=== PATIENT | female | born 1960 | race African-American/Black ===

== ENCOUNTER → 2020-09-29 08:41 | Outpatient (BNVA) | payer MEDICARE, SELFPAY | PROVIDERS: Visit Provider Nurse Practitioner Gerontology | DX: Z13.89 Encounter for screening for other disorder (principal) | CPT/HCPCS: Q3014 ==

== ENCOUNTER → 2021-09-29 10:09 | Outpatient (BNVA) | payer MEDICARE, SELFPAY | PROVIDERS: PCP Internal Medicine; Visit Provider Nurse Practitioner Gerontology | DX: Z13.89 Encounter for screening for other disorder (principal) | CPT/HCPCS: Q3014 ==

== ENCOUNTER 2023-11-15 12:41 | Outpatient (AMB) | payer OTHER, SELFPAY ==
--- NOTE | 2023-11-15 12:44 | A.OFFPC_ITS ---
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 Patient states she had thyroid surgery in 2017. Patient reports she does not have any concerns at this time. Patient reports it has been a long time since she was seen by a provider. Patient states she has some medical records with her today. Dr. Mishra was patient's PCP previously and he has . Manuscripts Curator Required: No Accompanied by: self Allergies No Known Allergies [No Known Allergies*] Allergy (Verified 11/15/23 12:53) Medication List - Last Reconciled 11/15/23 by Kirsty Peralta, SOIL EXPERT- buspirone 10 mg PO TID cetirizine 10 mg PO DAILY PRN cholecalciferol (vitamin D3) 25 mcg PO DAILY fluoxetine 40 mg PO DAILY hydroxyzine pamoate 25 mg PO BID ibuprofen 200 mg PO Q6H PRN levothyroxine 100 mcg PO QAM lorazepam 1 mg PO DAILY PRN Tobacco use date assessed: 11/15/23 Fall risk assessment: No Falls in past year Last assessed Fall Risk: 11/15/23 Dental Screening Dental Screen Date: 11/15/23 Did you have a dental visit in the last 12 months?: No Did you have a dental problem in the last 6 months where you did not have access to dental care?: No Was dental information given to patient?: Patient has dentist HPI HPI Comments History of Present Illness Details 63-year-old female with hyperlipidemia, GERD, MDD, postsurgical hypothyroidism (Graves disease 2015), current everyday smoker, CKD 3a, bipolar, osteoarthritis, Dental: bottom partials, top bumper Status post hernia repair, appendectomy, thyroidectomy (2016), Specialists Endocrinology - no longer ff'd Psychiatry Will Leigh Counselor Yves Coats - years since last visit Health maintenance Colonoscopy FOBT 09/2023 negative; has never had a colon. Mom + polyps Mammogram ordered Pap smear unsure of last pap. Would like to update. Menopause age age 44 DEXA has never had one Vaccines: due for flu shot Last set of labs 10/15/2019 Here today to est care Needs orders on all of her health maintenance diagnostics and labs. Reports she has not been seen by health care in several years due to severe anxiety. She is ready to get back on top of her health today. COUNTS INCLUDE 234 BEDS AT THE [facility] Medical History Vertigo Postsurgical hypothyroidism Surgical History Hx of hernia repair Hx of appendectomy Hx of section Hx of thyroidectomy Family History Mother Diabetes Father Lung cancer Social History (Updated 11/15/23 @ 13:01 by Tereza Escobar CMA) Household Members: Spouse Housing: House Alcohol intake: current Alcohol intake frequency: other Patient Tobacco Use Status: Current everyday Tobacco user Tobacco use type: Cigarette Cigarette Packs Per Day: 0.5 Years Smoked: 50 e-Cigarette/Vaping Use: Never Used Second Hand Smoke Exposure: Yes Substance Use Type: Marijuana service: No Current occupational status: unemployed Current occupational exposures/hazards: No Sexual orientation: Unable to collect Gender identity: Unable to collect Cognitive needs: No Hearing needs: No Vision needs: Yes (wears glasses) Questionnaire PHQ-9 Over the last 2 weeks, how often have you been bothered by any of the following problems? 1. Little interest or pleasure in doing things: more than half the days 2. Feeling down, depressed, or hopeless: nearly every day 3. Trouble falling or staying asleep, or sleeping too much: more than half the days 4. Feeling tired or having little energy: more than half the days 5. Poor appetite or overeating: more than half the days 6. Feeling bad about yourself - or that you are a failure or have let yourself or your family down: several days 7. Trouble concentrating on things, such as reading the newspaper or watching television: not at all 8. Moving or speaking so slowly that other people could have noticed. Or the opposite - being so fidgety or restless that you have been moving around a lot more than usual: not at all 9. Thoughts that you would be better off or of hurting yourself in some way: not at all Total score: 12 Depression Screening Interpretation: Positive Depression Screening Follow-up: Existing condition and In treatment Depression Screening Done: Yes 63023 - PHQ-9 Billing: Yes Source: Developed by Drs. Agusto Delgado, Klarissa Banegas, Satinder Douglas and colleagues, with an educational kaitlin from [employer]. Thrive Questionnaire Date Thrive assessed: 11/15/23 I am a: Patient What is your living situation today?: I have a steady place to live Within the past 12 months, did the food you bought not last and you didn't have the money to get more?: Sometimes True Within the past 12 months, did you worry whether your food would run out before you got money to buy more?: Sometimes True Do you have trouble paying for medicines?: No Do you have trouble getting transportation to medical appointments?: No Do you have trouble paying your heating and electricity bill?: Yes Do you have trouble taking care of your child, family member or friend?: No Do you have trouble with day-to-day activities such as bathing, preparing meals, shopping, managing finances, etc.?: No Are you currently unemployed and looking for a job?: No Are you interested in more education?: No Please select the resources that you would like help with: Food and Utilities Currently or been in a relationship where the following occur: no concerns reported THRIVE Score: 3 AUDIT C Alcohol Use Questionnaire (AUDIT-C) 1. How often do you have a drink containing alcohol?: Never 3. How often do you have six or more drinks on one occasion?: Never Total Score: 0 Score Reviewed/Action Taken: Yes DAVE-7 AMB Questionnaire DAVE-7 Date DAVE - 7 assessed: 11/15/23 Feeling nervous, anxious, or on edge: 3 = Nearly every day Not being able to stop or control worryin = More than half the days Worrying too much about different things: 2 = More than half the days Trouble relaxin = Several days Being so restless that it is hard to sit still: 1 = Several days Becoming easily annoyed or irritable: 1 = Several days Feeling afraid as if something awful might happen: 3 = Nearly every day Total DAVE-7 score (0-4 normal; 5-9 mild; 10-14 moderate; 15-21 severe): 13 Source: Developed by Drs. Agusto Delgado, Klarissa Banegas, Satinder Douglas and colleagues, with an educational kaitlin from [employer]. DAVE-7 Assessment Billing DAVE-7 Assessment Tool: DAVE-7 Assessment 66538 Review of Systems Const All systems reviewed & are unremarkable except as noted in HPI and below Physical exam (Primary Care) Vital Signs: Last Vital Signs Pulse 80 11/15/23 12:45 Resp 12 11/15/23 12:45 BP 110/72 11/15/23 12:45 Pulse Ox 97 11/15/23 12:45 Oxygen Delivery Method Room Air 11/15/23 12:45 BMI result Body Mass Index 30.3 Tobacco/Smoking Status: Tobacco use Status Tobacco use date assessed 11/15/23 11/15/23 13:02 Patient Tobacco Use Status Current everyday Tobacco 11/15/23 13:01 Tobacco use type Cigarette 11/15/23 13:02 e-Cigarette/Vaping Use Never Used 11/15/23 13:02 Are you ready to quit: No Tobacco cessation counseling provided: Yes Items discussed: QuitWorks Number of minutes spent counselin CPT code: 70136 - 4-10 Minutes PHQ-9: PHQ-9 Score PHQ-9: Total score 12 11/15/23 13:53 Depression Screening Interpretation: Positive Depression Screening Follow-up: Existing condition and In treatment Thrive Assessment: Date of Thrive Assessment Date Thrive assessed 11/15/23 11/15/23 13:08 Currently or been in a relationship where the following occur: no concerns reported Const Other: Awake alert oriented Sclera is nonicteric Mucous membranes moist Lung sounds clear to auscultation Regular rate and rhythm Mood and affect appropriate, cooperative Office Procedures Flu Questionnaire Does the patient have a severe egg allergy?: No Does the patient have severe life threatening allergies?: No Does the patient have a fever or illness today?: No Has the patient ever had Guillain-Sheldon Syndrome?: No Has the patient ever had any past reaction to a flu shot?: No Immunizations flu vacc [id number] 6mos up(PF) 60 mcg(15 mcgx4)/0.5 mL IM syringe Performing Provider: ANAID Wade [place] [facility] Administered by: Tereza Escobar CMA on 11/15/23 13:54 Dose Route Admin Location Dispensed Lot Number Expiration Date NDC Ultrasound Tester 0.5 mL IM Left Deltoid 0.5 mL [id number] 03/22/24 23177-329-31 [employer] VIS Given Date VIS Provided VIS Publication Date 11/15/23 Single Vaccine 21 Eligibility Eligibility Date Funding Source Not [facility] Eligible 11/15/23 Private Assessment and Plan Assessment & Plan (1) Hyperlipidemia: Comment: Current smoker. Was on atorvastatin 40 mg in the past. Is not currently taking. We will update a lipid panel and go from there Code(s): E78.5 - Hyperlipidemia, unspecified Qualifiers: Hyperlipidemia type: mixed hyperlipidemia Qualified Code(s): E78.2 - Mixed hyperlipidemia (2) Tobacco user: Comment: Current everyday smoker. Has been smoking 1 pack per day for 25 years. Interested in a referral to the lung cancer screening program. Referral placed today. Cessation encouraged Code(s): Z72.0 - Tobacco use (3) GERD (gastroesophageal reflux disease): Code(s): K21.9 - Gastro-esophageal reflux disease without esophagitis Qualifiers: Esophagitis presence: without esophagitis Qualified Code(s): K21.9 - Gastro-esophageal reflux disease without esophagitis (4) CKD (chronic kidney disease) stage 3, GFR 30-59 ml/min: Comment: Based on recent labs. We will update labs today. Avoid nephrotoxic agents. Code(s): N18.30 - Chronic kidney disease, stage 3 unspecified Qualifiers: Chronic kidney disease stage 3 subtype: stage 3a (GFR 45-59) Qualified Code(s): N18.31 - Chronic kidney disease, stage 3a (5) DAVE (generalized anxiety disorder): Comment: Current and active managed by outside prescriber and counselor. Maintained on buspirone, fluoxetine, hydroxyzine, lorazepam Code(s): F41.1 - Generalized anxiety disorder (6) MDD (major depressive disorder), recurrent episode: Comment: Current and active managed by outside prescriber and counselor. Maintained on buspirone, fluoxetine, hydroxyzine, lorazepam Code(s): F33.9 - Major depressive disorder, recurrent, unspecified Qualifiers: Major depression episode severity: severe Psychotic features: without psychotic features Qualified Code(s): F33.2 - Major depressive disorder, recurrent severe without psychotic features (7) Postsurgical hypothyroidism: Comment: d/t Graves Disease (2016), currently on levothyroxine. Was managed by endocrinology in the past. We will check thyroid labs today. Code(s): E89.0 - Postprocedural hypothyroidism (8) Screening mammogram for breast cancer: Comment: Screening mammogram ordered today Code(s): Z12.31 - Encounter for screening mammogram for malignant neoplasm of breast (9) Screen for colon cancer: Comment: Referral placed to GI for 1st screening colonoscopy. Reports mom had a positive history of polyps Code(s): Z12.11 - Encounter for screening for malignant neoplasm of colon (10) Postmenopause: Comment: DEXA scan ordered today along with vitamin-D. Code(s): Z78.0 - Asymptomatic menopausal state (11) Screening for cervical cancer: Comment: applied psychology chair referral placed for routine care. Reports she has not had a Pap smear in several years Code(s): Z12.4 - Encounter for screening for malignant neoplasm of cervix Plan This note is constructed using voice recognition software. While every effort has been made to ensure accuracy in survey rodman, still errors may have been included Sometimes, these errors may affect the content or meaning of the given sentence . Total time spent caring for the patient today was 45 minutes. This includes time spent before the visit reviewing the chart, time spent during the visit, and time spent after the visit on documentation We will bring her back in 2-3 weeks to review her labs and to make sure that she has followed through on her health maintenance items. Orders: Orders MM tomosynthesis screening BI Today E78.5 - Hyperlipidemia, unspecified, E89.0 - Postprocedural hypothyroidism, F33.9 - Major depressive disorder, recurrent, unspecified, F41.1 - Generalized anxiety disorder, N18.30 - Chronic kidney disease, stage 3 unspecified, Z12.31 - Encounter for screening mammogram for malignant neoplasm of breast Comprehensive [place]. Panel Fast Today E78.5 - Hyperlipidemia, unspecified, E89.0 - Postprocedural hypothyroidism, F33.9 - Major depressive disorder, recurrent, unspecified, F41.1 - Generalized anxiety disorder, N18.30 - Chronic kidney disease, stage 3 unspecified Thyroid Stimulating Hormone Today E78.5 - Hyperlipidemia, unspecified, E89.0 - Postprocedural hypothyroidism, F33.9 - Major depressive disorder, recurrent, unspecified, F41.1 - Generalized anxiety disorder, N18.30 - Chronic kidney disease, stage 3 unspecified Vitamin D 1,25 dihydroxy Today E78.5 - Hyperlipidemia, unspecified, E89.0 - Postprocedural hypothyroidism, F33.9 - Major depressive disorder, recurrent, unspecified, F41.1 - Generalized anxiety disorder, N18.30 - Chronic kidney disease, stage 3 unspecified XR DEXA axial skeleton Today E78.5 - Hyperlipidemia, unspecified, E89.0 - Postprocedural hypothyroidism, F33.9 - Major depressive disorder, recurrent, unspecified, F41.1 - Generalized anxiety disorder, N18.30 - Chronic kidney disease, stage 3 unspecified, Z78.0 - Asymptomatic menopausal state Lipid Panel Today E78.5 - Hyperlipidemia, unspecified, E89.0 - Postprocedural hypothyroidism, F33.9 - Major depressive disorder, recurrent, unspecified, F41.1 - Generalized anxiety disorder, N18.30 - Chronic kidney disease, stage 3 unspecified Microalbumin 24 hr Urine Today E78.5 - Hyperlipidemia, unspecified, E89.0 - Postprocedural hypothyroidism, F33.9 - Major depressive disorder, recurrent, unspecified, F41.1 - Generalized anxiety disorder, N18.30 - Chronic kidney disease, stage 3 unspecified Influenza [id number] Immunization Today Z23 - Encounter for immunization Referrals Gastroenterology Referral E78.5 - Hyperlipidemia, unspecified, E89.0 - Postprocedural hypothyroidism, F33.9 - Major depressive disorder, recurrent, unspecified, F41.1 - Generalized anxiety disorder, N18.30 - Chronic kidney disease, stage 3 unspecified, Z12.11 - Encounter for screening for malignant neoplasm of colon Thoracic Surgery Referral Z72.0 - Tobacco use TV TECHNICIAN Referral Z12.4 - Encounter for screening for malignant neoplasm of cervix, Z78.0 - Asymptomatic menopausal state Patient Instructions: Smoking Cessation How to Quit There are a lot of ways to quit smoking and many resources to help you. Family members, friends, and co-workers may be supportive or encouraging, but to be successful the desire and commitment to quit must be your own. Most people who have been able to successfully quit smoking made at least one unsuccessful attempt in the past. Try not to view past attempts to quit as failures, but rather as learning experiences. Stopping smoking or using smokeless tobacco is difficult, but anyone can do it. Know the symptoms to expect when you stop. Common symptoms include: ? An intense craving for nicotine ? Anxiety, tension, restlessness, frustration, or impatience ? Difficulty concentrating ? Drowsiness or trouble sleeping, as well as bad dreams and nightmares ? Drowsiness and trouble sleeping ? Headaches ? Increased appetite and weight gain ? Irritability or depression How severe your symptoms are depends on how long you smoked and how many cigarettes you smoked each day. Feel ready to quit? ? First and foremost, set a quit date and quit completely on that day. Before your quit date, you may begin reducing your cigarette use. But remember, there is no safe level of cigarette smoking. ? List the reasons why you want to quit. Include both short- and long-term benefits. ? Identify the times you are most likely to smoke. For example, do you tend to smoke when feeling stressed or down? When out at night with friends? While drinking coffee or alcohol? When bored? While driving? Right after a meal or sex? During a work break? While watching TV or playing cards? When you are with other smokers? ? Let all of your friends, family, and co-workers know of your plan to stop smoking and your quit date. Just being aware that they know what you're going through can be helpful, especially when you are grumpy. ? Get rid of all your cigarettes just before the quit date, and clean out anything that smells like smoke, such as clothes and furniture. Make a plan about what you will do instead of smoking at those times when you are most likely to smoke. ? Be as specific as possible. For example, drink tea instead of coffee -- tea may not trigger the desire for a cigarette. Or, take a walk when you feel stressed. ? Remove ashtrays and cigarettes from the car. Place pretzels or hard candies there instead. Pretend-smoke with a straw. ? Find activities that focus your hands and mind but are not taxing or fattening. Computer games, solitaire, knitting, sewing, and crossword puzzles may help. ? If you normally smoke after eating, find other ways to end a meal. Play a tape or CD, eat a piece of fruit, get up and make a phone call, or take a walk (a good distraction that also avalos calories). Make other changes in your lifestyle. ? Change your daily schedule and habits. Eat at different times or eat several small meals instead of three large ones. Sit in a different chair or even a different room. ? Satisfy your oral habits by eating celery or other low-calorie snack, chewing sugarless gum, or sucking on a cinnamon stick. ? Go to public places and restaurants where smoking is prohibited or restricted. ? Eat regular meals and don't eat too much candy or sweet things. ? Get more exercise. Take walks or ride a bike. Exercise helps relieve the urge to smoke. Set short-term quitting goals and reward yourself when you meet them. ? Every day, put the money you normally spend on cigarettes in a jar. Then buy something pleasurable after a period of time. ? Try not to think about all the days ahead you will need to avoid smoking. Take it one day at a time. ? Even one puff or one cigarette will make your desire for more cigarettes even stronger. However, it is normal to make mistakes. So even if you have one cigarette, you don't need to take the next one. Other tips to help you quit smoking and stick to it: ? Enroll in a smoking cessation program (hospitals, health departments, community centers, and work sites often offer programs). Learn about self-hypnosis or other techniques. ? Ask your health care provider about prescription medications that are safe and appropriate for you. ? Find out about nicotine patches, gum, and sprays. The [place] [employer]'s web site -- www.cancer.org -- is an excellent resource for smokers who are trying to quit, and the [employer] [place] Sm[employer] can help some smokers kick the habit. Above all, don't get discouraged if you aren't able to quit smoking the first time. Nicotine addiction is a hard habit to break. Try something different next time. Develop new strategies, and try again. Many people take several attempts to finally kick the habit. Coding Level of Care Code New Pt Level 4 (55062) Diagnoses Mixed hyperlipidemia E78.2 Hyperlipidemia type: mixed hyperlipidemia Tobacco user Z72.0 Gastroesophageal reflux disease without esophagitis K21.9 Esophagitis presence: without esophagitis Stage 3a chronic kidney disease N18.31 Chronic kidney disease stage 3 subtype: stage 3a (GFR 45-59) DAVE (generalized anxiety disorder) F41.1 Severe episode of recurrent major depressive disorder, without psychotic features F33.2 Major depression episode severity: severe Psychotic features: without psychotic features 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 Screening mammogram for breast cancer Z12.31 Screen for colon cancer Z12.11 Postmenopause Z78.0 Screening for cervical cancer Z12.4 Additional Codes DAVE-7 Assessment Billing - DAVE-7 Assessment Tool: DAVE-7 Assessment 43813 ([id number]) Vital Signs *Quality* - CPT code: 10660 - 4-10 Minutes ([id number])
[2023-11-15 12:45] VITALS: BP 110/72; PULSE 80; RESP 12; O2SAT 97; BMI 30.3
== END 2023-11-15 13:55 | disposition home or self-care (01) ==
PROVIDERS: PCP Nurse Practitioner Family; Visit Provider Nurse Practitioner Family
DX: E78.2 Mixed hyperlipidemia (principal); N18.31 Chronic kidney disease, stage 3a; F33.2 Major depressive disorder, recurrent severe without psychotic features; Z23 Encounter for immunization; Z72.0 Tobacco use; K21.9 Gastro-esophageal reflux disease without esophagitis; F41.1 Generalized anxiety disorder; E89.0 Postprocedural hypothyroidism; Z12.31 Encounter for screening mammogram for malignant neoplasm of breast; Z12.11 Encounter for screening for malignant neoplasm of colon; Z78.0 Asymptomatic menopausal state
CPT/HCPCS: 90471; 90686; 99204

== ENCOUNTER 2023-12-06 11:28 | Outpatient (REF) | payer OTHER, SELFPAY ==
[2023-12-06 13:09] LABS: Alanine Aminotransferase 11 U/L (0-31); Albumin Level 4.4 g/dL (3.5-5.0); Alkaline Phosphatase 81 U/L (39-117); Anion Gap 16 (12-20); Aspartate Amino Transferase 14 U/L (5-31); Bilirubin Total 0.3 mg/dL (0.0-1.0); Blood Urea Nitrogen 10 mg/dL (9-16); Calcium 10.1 mg/dL (8.4-10.2); Carbon Dioxide 23 mmol/L (22-29); Chloride 105 mmol/L (96-108); Cholesterol 291 mg/dL (<200); Estimated Glomerular Filt Rate 56; Glucose Fasting 101 mg/dL (60-99); HDL Cholesterol 64 mg/dL (>40); LDL Cholesterol Calculated 192 mg/dL (<100); Potassium 4.3 mmol/L (3.3-5.1); Sodium 140 mmol/L (135-145); Total Protein 7.6 g/dL (6.5-8.0); Triglycerides 176 mg/dL (<150)
[2023-12-06 13:16] LABS: Thyroid Stimulating Hormone 4.43 uIU/mL (0.32-4.0)
[2023-12-10 15:24] LABS: VITAMIN D (1,25 OH) D3 73 pg/mL; Vit D (1,25-Dihydroxy) Total 73 pg/mL (18-72); Vitamin D (1,25 OH) D2 <8 pg/mL
== END 2023-12-06 11:29 | disposition home or self-care (01) ==
LOC: HO.CT 11:28
PROVIDERS: PCP Nurse Practitioner Family; Visit Provider Nurse Practitioner Family
DX: N18.30 Chronic kidney disease, stage 3 unspecified (principal); E89.0 Postprocedural hypothyroidism; E78.5 Hyperlipidemia, unspecified; F33.9 Major depressive disorder, recurrent, unspecified; F41.1 Generalized anxiety disorder; F17.210 Nicotine dependence, cigarettes, uncomplicated
CPT/HCPCS: 36415; 80053; 80061; 82652; 84443

== ENCOUNTER 2023-12-20 12:45 | Outpatient (REF) | payer OTHER, SELFPAY ==
--- NOTE | ~2023-12-20 | MM_ITS ---
EXAMINATION: BONE DENSITOMETRY CLINICAL INDICATION: Menopause. COMPARISON: This is the patient's baseline examination. TECHNIQUE: Using a Admaxim DXA System (software version: 13.1) manufactured by [employer], dual-energy x-ray absorptiometry was performed of the lumbar spine and left hip. The images are of good technical quality. Summary results are attached. FINDINGS: AP SPINE L1-L4: BMD 1.222 g/cm2, Z-score 1.1, T-score 0.3, normal. LEFT FEMUR, NECK: BMD 0.776 g/cm2, Z-score -1.4, T-score -1.9, osteopenia. LEFT FEMUR, TOTAL: BMD 0.862 g/cm2, Z-score -1.1, T-score -1.2, osteopenia. IDENTIFIED RISK FACTORS: Early menopause, tobacco use (current smoker), alcohol (3 or more units per day), secondary osteoporosis. HISTORY OF FRACTURE: None listed. MEDICATIONS: Vitamin D. MM/XR DEXA axial skeleton IMPRESSION: 1. DIAGNOSIS: Osteopenia based on the lowest T-score value of -1.9 in the femoral neck applying World Health Organization criteria. 2. 10-YEAR FRACTURE RISK PREDICTION, FRAX: Major osteoporotic fracture (clinical spine, forearm, hip or shoulder) 5.7%. Hip fracture 1.5%. 3. Treatment Recommendations: NOF guidelines recommend consideration for treatment in postmenopausal women and men age 50 and older presenting with the following: -A hip or vertebral (clinical or morphometric) fracture. -T-score less than or equal to -2.5 at the femoral neck or spine after appropriate evaluation to exclude secondary causes. -Low bone mass at the hip or spine and a 10-year fracture probability by FRAX of greater than or equal to 3% for hip fracture or greater than or equal to 20% for major osteoporotic fracture based on the [place] adapted WHO algorithm. 4. Other Recommendations: All treatment decisions require clinical judgment and consideration of individual patient factors, including patient preferences, comorbidities, previous drug use, risk factors not captured in the FRAX model (e.g. frailty, falls, vitamin D deficiency, increased bone turnover, interval significant decline in bone density) and possible under or overestimation of fracture risk by FRAX. Additional medical evaluation for secondary cause of low bone mineral density may be appropriate. FUTURE SCAN RECOMMENDATION: People with diagnosed cases of osteoporosis or at high risk for fracture should have regular bone mineral density tests. For patients eligible for Medicare, routine testing is allowed once every 2 years. The testing frequency can be increased to one year for patients who have rapidly progressing disease, those who are receiving or discontinuing medical therapy to restore bone mass, or have additional risk factors.
--- NOTE | ~2023-12-20 | MM_ITS ---
EXAMINATION: MM SCREENING DIGITAL BREAST TOMOSYNTHESIS, BILATERAL CLINICAL INFORMATION: Screening. Asymptomatic. COMPARISON: Mammography: No prior mammograms for comparison. The patient has not had a mammogram at this institution for the past 18 years. TECHNIQUE: Digital breast tomosynthesis is performed in both the craniocaudal and mediolateral oblique views along with computer-aided detection (CAD). Synthesized 2D images are generated from the tomosynthesis. FINDINGS: There are scattered areas of fibroglandular density (ACR BI-RADS breast composition Category b). There are no significant masses, abnormal calcifications, or other abnormalities. MM/MM tomosynthesis screening BI IMPRESSION: No mammographic evidence of malignancy. ASSESSMENT: BI-RADS BI-RADS 1 - Negative RECOMMENDATION: Routine annual mammography screening. 1 year F/U This examination should not preclude the clinical evaluation of a suspicious palpable abnormality. This patient's information was entered into a reminder system with a target due date for their next mammogram.
== END 2023-12-20 12:46 | disposition home or self-care (01) ==
LOC: HO.MAMMO 12:45
PROVIDERS: PCP Nurse Practitioner Family; Visit Provider Nurse Practitioner Family
DX: Z12.31 Encounter for screening mammogram for malignant neoplasm of breast (principal); Z13.820 Encounter for screening for osteoporosis; Z78.0 Asymptomatic menopausal state
CPT/HCPCS: 77063; 77067; 77080

== ENCOUNTER → 2023-12-20 13:30 | Outpatient (BNV) | payer OTHER, SELFPAY | PROVIDERS: PCP Nurse Practitioner Family; Visit Provider Radiology Diagnostic Radiology | DX: Z12.31 Encounter for screening mammogram for malignant neoplasm of breast (principal) | CPT/HCPCS: 77063; 77067 ==

== ENCOUNTER 2023-12-27 13:45 | Outpatient (AMB) | payer OTHER, SELFPAY ==
--- NOTE | 2023-12-27 13:49 | MHC.PC.OV ---
Vital Signs 12/27/23 13:52 12/27/23 14:02 12/27/23 14:03 12/27/23 14:56 Height 5 ft Weight 156 lb BMI 30.5 BP 163/105 H 161/102 H 148/86 H 138/90 H Blood Pressure Location Rt brachial Rt brachial Lt brachial Lt brachial Position Sitting Sitting Sitting Sitting Respiration 14 Pulse 85 Pulse Source Pulse Oximeter Temp 99.0 F Temp Source Temporal Artery Scan Pulse Oximetry (%) 99 Oxygen Delivery Method Room Air Intake Visit Reasons: follow up labs Intake Note: Follow up. Lab results. 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: No Allergies No Known Allergies [No Known Allergies*] Allergy (Verified 12/27/23 14:54) Medication List - Last Reconciled 12/27/23 by Rochelle Bolanos CNP buspirone 10 mg PO TID cetirizine 10 mg PO DAILY PRN cholecalciferol (vitamin D3) 25 mcg PO DAILY fluoxetine 40 mg PO DAILY hydroxyzine pamoate 25 mg PO BID ibuprofen 200 mg PO Q6H PRN levothyroxine 100 mcg PO QAM lorazepam 1 mg PO DAILY PRN Tobacco use date assessed: 12/27/23 Dental Screening Dental Screen Date: 12/27/23 Did you have a dental visit in the last 12 months?: No Did you have a dental problem in the last 6 months where you did not have access to dental care?: No Was dental information given to patient?: No HPI HPI Comments History of Present Illness Details 63-year-old female presents for review of recent blood work She admits to taking medications as prescribed without adverse reactions. However, she notes that she takes levothyroxine with a full glass of water with her other medications but without food She admits to consuming significant amount of sea salt Her recent triglycerides, total cholesterol, and LDL levels are elevated, 176, 291, and 192 respectively; recent TSH is slightly elevated, 4.43; GFR is slightly low, 53 She denies acute symptoms at this time [facility] Medical History Vertigo Postsurgical hypothyroidism Surgical History Hx of hernia repair Hx of appendectomy Hx of section Hx of thyroidectomy Family History Mother Diabetes Father Lung cancer Social History (Updated 11/15/23 @ 13:01 by Tereza Escobar [facility]) Household Members: Spouse Housing: House Alcohol intake: current Alcohol intake frequency: other Patient Tobacco Use Status: Current everyday Tobacco user Tobacco use type: Cigarette Cigarette Packs Per Day: 0.5 Years Smoked: 50 e-Cigarette/Vaping Use: Never Used Second Hand Smoke Exposure: Yes Substance Use Type: Marijuana service: No Current occupational status: unemployed Current occupational exposures/hazards: No Sexual orientation: Unable to collect Gender identity: Unable to collect Cognitive needs: No Hearing needs: No Vision needs: Yes (wears glasses) Questionnaire Thrive Questionnaire Date Thrive assessed: 11/15/23 AUDIT C Alcohol Use Questionnaire (AUDIT-C) 1. How often do you have a drink containing alcohol?: 4 or more times a week 2. How many drinks containing alcohol do you have on a typical day when you are drinking?: 1 or 2 3. How often do you have six or more drinks on one occasion?: Monthly Total Score: 6 DAVE-7 AMB Questionnaire DAVE-7 Date DAVE - 7 assessed: 11/15/23 Source: Developed by Drs. Agusto Delgado, Klarissa Banegas, Satinder Douglas and colleagues, with an educational kaitlin from [employer]. Review of Systems Const Details: Const Denies chills, Denies fatigue, Denies fever(s), Denies headache(s) and Denies weakness ENT Denies dizziness and Denies headache(s) Card Denies chest pain, Denies lightheadedness, Denies dyspnea and Denies other (Palpitations) Resp Denies cough, Denies dyspnea, Denies wheezing and Denies other ( shortness of breath) GI Denies abdominal pain, Denies melena, Denies hematochezia, Denies change in bowel habits, Denies dyspepsia and Denies nausea Denies hematuria and Denies dysuria Musc Denies abnormal gait, Denies myalgias, Denies arthralgias, Denies numbness and Denies tingling Skin/Breast Denies rash, Denies unusual bruising and Denies wounds Neuro Denies abnormal gait, Denies dizziness, Denies headache(s), Denies memory loss, Denies numbness, Denies Sensory deficit (Neuro), Denies tingling and Denies weakness Psych Denies anxiety, Denies depression, Denies memory loss Endo Denies cold intolerance, Denies fatigue, Denies heat intolerance, Denies polydipsia and Denies polyuria Aller/Immun Denies wheezing Physical exam (Primary Care) Vital Signs: Last Vital Signs Temp 99.0 F 12/27/23 13:52 Pulse 85 12/27/23 13:52 Resp 14 12/27/23 13:52 BP 138/90 H 12/27/23 14:56 Pulse Ox 99 12/27/23 13:52 Oxygen Delivery Method Room Air 12/27/23 13:52 BMI result Body Mass Index 30.5 Tobacco/Smoking Status: Tobacco use Status Tobacco use date assessed 12/27/23 12/27/23 13:57 Patient Tobacco Use Status Current everyday Tobacco 12/27/23 13:57 Tobacco use type Cigarette 12/27/23 13:57 e-Cigarette/Vaping Use Never Used 12/27/23 13:57 Thrive Assessment: Date of Thrive Assessment Date Thrive assessed 11/15/23 12/27/23 13:57 Const Other: General: no acute distress and well developed Nutritional Appearance: well nourished Orientation/consciousness: patient oriented x3 HENMT Head: Yes normocephalic and Yes atraumatic Eyes General: appearance normal, both eyes and all related structures Pupils: Equal, round and reactive pupils present EOM: EOMs intact bilaterally Resp Effort & Inspection: normal respiratory effort Auscultation: clear to auscultation bilaterally Cardio Rate: regular rate Rhythm: regular rhythm Heart sounds: S1 normal heart sound present, S2 normal heart sound present, no gallops, no murmurs and no rubs GI Palpation (GI): No Abdominal aortic bruit present, Soft to palpation, nontender, No hepatosplenomegaly present and No Rebound tenderness present Auscultation: normal bowel sounds General: Yes no CVA tenderness Back/Spine/Pelvis Back: no CVA tenderness Cervical Spine: cervical ROM normal and No Cervical spine tenderness Thoracic/Lumbar Spine: thoraco-lumbar ROM normal, No pain with thoraco-lumbar ROM, No thoracic spinal tenderness and No lumbar spinal tenderness Extrem General: Yes normal to inspection, No edema and No calf tenderness Skin General: warm and dry. Normal skin color. Normal skin turgor Neuro General: patient oriented x3, gait normal and no focal neuro deficit Cranial nerves: Yes Equal, round and reactive pupils present Cognition (Neuro): normal cognition Gait exam (Neuro): Normal gait present Sensory Exam: No Sensory deficit (Neuro) Psych Appearance: grossly normal Affect: normal affect Attitude: cooperative Thought process: Normal thought process present Assessment and Plan Assessment & Plan (1) Hyperlipidemia: Comment: Current smoker. Was on atorvastatin 40 mg in the past. Is not currently taking. We will update a lipid panel and go from there Code(s): E78.5 - Hyperlipidemia, unspecified Qualifiers: Hyperlipidemia type: mixed hyperlipidemia Qualified Code(s): E78.2 - Mixed hyperlipidemia Plan: Recent triglycerides, total cholesterol, and LDL levels are elevated, 176, 291, and 192 respectively Will start atorvastatin 20 mg daily at bedtime. Advised to take as prescribed Advised to limit foods high in saturated fat and avoid foods high in trans fat Routine exercise encouraged Will recheck lipid. Advised to get fasting blood work done a few days before next visit Follow-up with PCP in 6 weeks or return sooner with symptoms or concerns Verbalized understanding and agreed with treatment plan (2) CKD (chronic kidney disease) stage 3, GFR 30-59 ml/min: Comment: Based on recent labs. We will update labs today. Avoid nephrotoxic agents. Code(s): N18.30 - Chronic kidney disease, stage 3 unspecified Qualifiers: Chronic kidney disease stage 3 subtype: stage 3a (GFR 45-59) Qualified Code(s): N18.31 - Chronic kidney disease, stage 3a Plan: Recent GFR is slightly low, 56 Encouraged to avoid nephrotoxic agents such as NSAIDs Adequate hydration encouraged Follow-up with PCP as planned Verbalized understanding and agreed with the plan (3) Elevated fasting glucose: Code(s): R73.01 - Impaired fasting glucose Plan: Recent fasting glucose is slightly elevated, 101 Will recheck fasting glucose. Advised to get fasting blood work done a few days before her next visit Follow-up with PCP in 6 weeks Verbalized understanding and agreed with the plan (4) Elevated blood pressure reading without diagnosis of hypertension: Code(s): R03.0 - Elevated blood-pressure reading, without diagnosis of hypertension Plan: Resting blood pressure is slightly elevated, 138/90 Elevated BP is likely attributed to significant salt consumption Low-sodium diet encouraged Follow-up with PCP in 6 weeks Verbalized understanding and agreed with treatment plan (5) Postsurgical hypothyroidism: Comment: d/t Graves Disease (2016), currently on levothyroxine. Was managed by endocrinology in the past. We will check thyroid labs today. Code(s): E89.0 - Postprocedural hypothyroidism Plan: Recent TSH is slightly elevated, 4.43 Will increase levothyroxine to 112 mcg daily. Advised to take as prescribed, in an empty stomach, with a full glass of water, 30-60 minutes before taking other medications or eating Will recheck TSH/T4. Advised to get blood work done a few days before her next visit Follow-up in 6 weeks Verbalized understanding and agreed with treatment plan Orders: Orders Complete Blood Count Auto Diff 6 Weeks N18.31 - Chronic kidney disease, stage 3a Glucose Fasting 6 Weeks R73.01 - Impaired fasting glucose Lipid Panel 6 Weeks E78.2 - Mixed hyperlipidemia Medications: New atorvastatin 20 mg PO BEDTIME 30 days 30 tabs 3RF levothyroxine 112 mcg PO DAILY 30 days 30 tabs 3RF Changed From cholecalciferol (vitamin D3) 25 mcg PO DAILY To cholecalciferol (vitamin D3) 25 mcg PO DAILY 30 days 30 caps 3RF From cetirizine 10 mg PO DAILY PRN To cetirizine 10 mg PO DAILY 30 days PRN 30 tabs 3RF allergies Discontinued levothyroxine Discontinued Reason: Doctor's Order 100 mcg PO QAM 90 tabs 3RF Coding Level of Care Code Est Pt Level 4 (72047) Diagnoses Mixed hyperlipidemia E78.2 Hyperlipidemia type: mixed hyperlipidemia Stage 3a chronic kidney disease N18.31 Chronic kidney disease stage 3 subtype: stage 3a (GFR 45-59) Elevated fasting glucose R73.01 Elevated blood pressure reading without diagnosis of hypertension R03.0 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
[2023-12-27 13:52] VITALS: BP 163/105; PULSE 85; RESP 14; TEMP 37.2; O2SAT 99; BMI 30.5
[2023-12-27 14:02] VITALS: BP 161/102
[2023-12-27 14:03] VITALS: BP 148/86
[2023-12-27 14:56] VITALS: BP 138/90
== END 2023-12-27 15:27 | disposition home or self-care (01) ==
PROVIDERS: PCP Nurse Practitioner Family; Visit Provider Nurse Practitioner Family
DX: E78.2 Mixed hyperlipidemia (principal); N18.31 Chronic kidney disease, stage 3a; R73.01 Impaired fasting glucose; R03.0 Elevated blood-pressure reading, without diagnosis of hypertension; E89.0 Postprocedural hypothyroidism
CPT/HCPCS: 99214

== ENCOUNTER 2024-01-22 15:45 | Outpatient (AMB) | payer OTHER, SELFPAY ==
--- NOTE | 2024-01-22 15:42 | MHC.PC.OV ---
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 Required: No Allergies No Known Allergies [No Known Allergies*] Allergy (Verified 01/22/24 16:12) Medication List - Last Reconciled 01/22/24 by YVROSE Wade- atorvastatin 20 mg PO BEDTIME 30 days buspirone 10 mg PO TID cetirizine 10 mg PO DAILY PRN 30 days cholecalciferol (vitamin D3) 25 mcg PO DAILY 30 days fluoxetine 40 mg PO DAILY hydroxyzine pamoate 25 mg PO BID ibuprofen 200 mg PO Q6H PRN levothyroxine 112 mcg PO DAILY 30 days lorazepam 1 mg PO DAILY PRN Tobacco use date assessed: 12/27/23 Dental Screening Dental Screen Date: 12/27/23 HPI HPI Comments History of Present Illness Details 63-year-old female with hyperlipidemia, GERD, MDD, postsurgical hypothyroidism (Graves disease 2015), current everyday smoker, CKD 3a, bipolar, osteoarthritis, osteopenia, Dental: bottom partials, top bumper Status post hernia repair, appendectomy, thyroidectomy (2015), Specialists Endocrinology - no longer ff'd Psychiatry Will Leigh Counselor Yves Coats - years since last visit Health maintenance Colonoscopy FOBT 09/2023 negative; has never had a colon. Mom + polyps Mammogram 12/2023 BI-RADS BI-RADS 1 - Negative Pap smear unsure of last pap. Would like to update. Menopause age age 44 DEXA 12/20/23 Osteopenia based on the lowest T-score value of -1.9 in the femoral neck applying World Health Organization criteria. Vaccines: due for flu shot Lung Ca Screening: Referred to program 10/2023 Labs from December 09 show a CMP, fasting glucose 101 total cholesterol 291, triglycerides 176, LDL 92, HDL 64, normal vitamin-D, TSH 4.43 DEXA Osteopenia based on the lowest T-score value of -1.9 in the femoral neck applying World Health Organization criteria. Telehealth visit for CC: Fungal rash in between toes, R foot, using OTC meds w/o relief Tolerating statin w/o side effects. Wants to review DEXA and Mammo results along w/ labs. Taking thyroid supplement as directed. c/o seasonal allergies. taking zyrtec w/o relief. wonders if she can take something else [facility] Medical History Vertigo Postsurgical hypothyroidism Surgical History Hx of hernia repair Hx of appendectomy Hx of section Hx of thyroidectomy Family History Mother Diabetes Father Lung cancer Social History (Updated 11/15/23 @ 13:01 by Tereza Escobar CMA) Household Members: Spouse Housing: House Alcohol intake: current Alcohol intake frequency: other Patient Tobacco Use Status: Current everyday Tobacco user Tobacco use type: Cigarette Cigarette Packs Per Day: 0.5 Years Smoked: 50 e-Cigarette/Vaping Use: Never Used Second Hand Smoke Exposure: Yes Substance Use Type: Marijuana service: No Current occupational status: unemployed Current occupational exposures/hazards: No Sexual orientation: Unable to collect Gender identity: Unable to collect Cognitive needs: No Hearing needs: No Vision needs: Yes (wears glasses) Questionnaire Thrive Questionnaire Date Thrive assessed: 11/15/23 DAVE-7 AMB Questionnaire DAVE-7 Date DAVE - 7 assessed: 11/15/23 Source: Developed by Drs. Agusto Delgado, Klarissa Banegas, Satinder Douglas and colleagues, with an educational kaitlin from [employer]. Physical exam (Primary Care) Tobacco/Smoking Status: Tobacco use Status Tobacco use date assessed 12/27/23 01/22/24 15:44 Patient Tobacco Use Status Current everyday Tobacco 01/22/24 15:44 Tobacco use type Cigarette 01/22/24 15:44 e-Cigarette/Vaping Use Never Used 01/22/24 15:44 Thrive Assessment: Date of Thrive Assessment Date Thrive assessed 11/15/23 01/22/24 15:44 Telehealth Telehealth Telehealth Platform: Telephone Location of provider rendering services: practice address Location of patient: address on file Patient Identification confirmed using: Name, : Yes Telehealth method: voice only Patient verbally consented to treatment: Yes Patient verbally consented to billing insurance company: Yes Patient informed of any privacy concerns related to visit: Yes Minutes spent on Phone/Video with Pt.: 15 Assessment and Plan Assessment & Plan (1) Tinea pedis: Comment: affecting R foot start ketoconazole 2% BID until healed keep skin clean and dry Code(s): B35.3 - Tinea pedis Qualifiers: Laterality: right Qualified Code(s): B35.3 - Tinea pedis (2) Seasonal allergies: Comment: not responding well to zyrtec start ivy 180mg po qD Code(s): J30.2 - Other seasonal allergic rhinitis (3) Osteopenia: Comment: noted on DEXA 12/2023 Vit D and Ca+ levels WNL Maintain wt bearing exercises Code(s): M85.80 - Other specified disorders of bone density and structure, unspecified site Qualifiers: Osteopenia location: unspecified Qualified Code(s): M85.80 - Other specified disorders of bone density and structure, unspecified site Medications: New ketoconazole 2% 1 appl topical BID 30 grams 2RF fexofenadine (Ivy Allergy) 180 mg PO DAILY 90 tabs 1RF Discontinued cetirizine Discontinued Reason: Doctor's Order 10 mg PO DAILY 30 days PRN 30 tabs 3RF allergies Patient Instructions: please keep scheduled appt 02/13 with me, labs to be done 1 week before sooner as needed Coding Level of Care Code Tele Est Pt Level 2 (58389) Diagnoses Tinea pedis of right foot B35.3 Laterality: right Seasonal allergies J30.2 Osteopenia, unspecified location M85.80 Osteopenia location: unspecified
== END 2024-01-22 16:26 | disposition home or self-care (01) ==
LOC: HO.HMGFM 15:45
PROVIDERS: PCP Nurse Practitioner Family; Visit Provider Nurse Practitioner Family
DX: B35.3 Tinea pedis (principal); J30.2 Other seasonal allergic rhinitis; M85.80 Other specified disorders of bone density and structure, unspecified site
CPT/HCPCS: 99442

== ENCOUNTER → 2024-07-06 16:02 | Outpatient (BNVA) | payer OTHER, SELFPAY | PROVIDERS: PCP Nurse Practitioner Family; Visit Provider Nurse Practitioner Family ==

== ENCOUNTER 2025-07-17 09:26 | Outpatient (REF) | payer MEDICARE, SELFPAY ==
[2025-07-17 10:39] LABS: Alanine Aminotransferase 82 U/L (0-31); Albumin Level 4.9 g/dL (3.5-5.0); Alkaline Phosphatase 62 U/L (39-117); Anion Gap 16 (12-20); Aspartate Amino Transferase 59 U/L (5-31); Blood Urea Nitrogen 10 mg/dL (9-16); Calcium 9.7 mg/dL (8.4-10.2); Carbon Dioxide 25 mmol/L (22-29); Chloride 102 mmol/L (96-108); Cholesterol 489 mg/dL (<200); Estimated Glomerular Filt Rate 46; HDL Cholesterol 84 mg/dL (>40); Potassium 3.5 mmol/L (3.3-5.1); Sodium 139 mmol/L (135-145); Total Protein 7.7 g/dL (6.5-8.0); Triglycerides 254 mg/dL (<150)
[2025-07-17 11:52] LABS: Free T4 (Free Thyroxine) < 0.42 ng/dL (0.71-1.85)
== END 2025-07-17 09:27 | disposition home or self-care (01) ==
LOC: HO.LAB 09:26
PROVIDERS: PCP Nurse Practitioner Family; Visit Provider Nurse Practitioner Family
DX: N18.31 Chronic kidney disease, stage 3a (principal); M85.80 Other specified disorders of bone density and structure, unspecified site; E89.0 Postprocedural hypothyroidism; R73.01 Impaired fasting glucose
CPT/HCPCS: 36415; 80053; 80061; 82306; 83036; 84439; 84443

== ENCOUNTER 2025-07-23 12:36 | Outpatient (AMB) | payer MEDICARE, SELFPAY ==
--- NOTE | 2025-07-23 12:38 | A.OFFVIS_ITS ---
Intake Vital Signs 07/23/25 12:45 Height 5 ft Weight 145 lb 4 oz BMI 28.4 BP 138/76 Blood Pressure Location Lt brachial Position Sitting Respiration 13 Pulse 93 Pulse Source Pulse Oximeter Temp 97.2 F Temp Source Oral Pulse Oximetry (%) 98 Oxygen Delivery Method Room Air Intake Visit Reasons: MAWV /medication review Intake Note: AWV and review meds. Patient c/o no energy, sob after climbing stairs, both eyes are bothering from allergies getting worse. Patient has been laying down for two weeks and feels extra tierd. Algologist Required: No Allergies No Known Allergies (No Known Allergies*) Allergy (Verified 07/23/25 12:39) Medication List - Last Reconciled 07/23/25 by Kirsty Peralta, SKID WORKER- atorvastatin 20 mg PO BEDTIME buspirone 10 mg PO TID cholecalciferol (vitamin D3) (Vitamin D3) 25 mcg PO DAILY fexofenadine (Fawn Allergy) 180 mg PO DAILY fluoxetine 40 mg PO DAILY Grabber As directed hydroxyzine pamoate 25 mg PO BID ibuprofen 200 mg PO Q6H PRN ketoconazole 2% 1 appl topical BID latex gloves (Latex Gloves, Medium) As directed, use daily levothyroxine 112 mcg PO DAILY lorazepam 1 mg PO DAILY PRN underpads (Bed Underpads) As directed use daily Do you need a note to return to daycare/school/sports/work: No HPI HPI Comments History of Present Illness Details Here today for AWV. IPPV The Medicare Annual Wellness Visit (AWV) is a yearly appointment with a health professional to identify health risks and help reduce them and to create or update a personalized prevention plan. During a Medicare AWV, health professionals should also review any current opioid prescriptions, detect any cognitive impairment, and establish or update medical and family history. 64-year-old female with hyperlipidemia, GERD, MDD, postsurgical hypothyroidism (Graves disease 2015), current everyday smoker, CKD 3a, bipolar, osteoarthritis, osteopenia, Dental: bottom partials, top bumper SurgHx: Status post hernia repair, appendectomy, thyroidectomy (2016), FHx: Y SocHx:Y Health Maintenance: See scanned preventative medicine assessment with p ersonalized health plan and screening schedule. Colonoscopy FOBT 09/2023 negative; has never had a colon. Mom + polyps, will order cologaurd for convenience Mammogram 12/2023 BI-RADS BI-RADS 1 - Negative Repeat ordered today Pap smear unsure of last pap. Would like to update. 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 Vaccines: Tdap & Flu 07/23/25 Advised to get Shingles & Pneumococcal @ pharmacy Lung Ca Screening: Referred to program 10/2023 but did not attend; referred again today. AAA screen: NA screened out EKG: done today Labs 07/17/25 eGFR 46, Cr 1.18, AST 59, ALT 82, TC 254, LDL 355, TG 254, HDL 84, TSH 74.92, T4 < 0.42 [place] of Care: Endocrinology - no longer ff'd Psychiatry Will [facility] Counselor Optho Dr Coats - years since last visit Visual Acuity:Wears glasses, due for exam. Hearing Screening: Offers no complaints ACP: Does not have HCP/ACP. MOLST and HCP provided today along w/ edu Dietary/Nutrition/Exercise Edu provided: Y During the course of the visit the patient was educated and counseled about appropriate screening and preventative services. Patient instructions were provided to the patient in written or electronic format. I have reviewed and verified the above information. History of Present Illness The patient is a 64-year-old female presenting for her initial preventative Medicare wellness visit. Hypothyroidism: - The patient has a history of hypothyro idism but has been non-adherent with her levothyroxine, stating she ran out of her medication. - Recent lab results show a TSH of 74.92 and a T4 of less than 0.42. - She reports symptoms including feeling that her legs are like rubber bands, feeling icky, and having been lying down for the past two weeks. - The patient's non-adherence is partly due to transportation issues that began when she turned 64 and her insurance changed, causing her to lose her transport service for appointments and lab work. Hyperlipidemia: - The patient has a history of hyperlipi demia and was prescribed atorvastatin. - She reports that she has not been taki ng any of her medications recently, except for her mental health medications. - Recent lab work reveals an LDL of 355. Major Depressive Disorder and Anxiety: - The patient has a history of major dep ressive disorder and anxiety, for which she is prescribed fluoxetine, Ativan, hydroxyzine, and buspirone. - She reports experiencing agoraphobia a nd has not even wanted to sit on her porch. - She recently stopped doing yoga and re ports anhedonia. - Recent significant life stressors incl ude the of a sister, a stroke in her oldest sister, and her leaving her. - She had difficulty obtaining her [facility] medications from an [id number] virtual provider but has since received them. CKD3/Elevated LFT : - Recent lab results show an eGFR of 46, a creatinine of 1.18, an AST of 59, and an ALT of 82. Vitamin D Deficiency and Osteopenia: - The patient has a history of vitamin D deficiency and osteopenia and is prescribed a vitamin D supplement, with which she has been non-adherent. Tobacco Use: - The patient is a current everyday smok er. Past Medical History - Major depressive disorder - Anxiety with agoraphobia - Hypothyroidism - Hyperlipidemia - Vitamin D deficiency - Osteopenia - Seasonal allergies Social History - Marital Status: Has been with her husb and for over 35 years; he recently left and returned, now living in a separate room in their home. - Substance Use: Current everyday smoker . - Functional Status: Does not drive. Dep ends on others to attend appts. - Activities: Enjoys painting and drawin g in her studio. - Exercise: Previously did yoga but has stopped recently. - Social Determinants of Health: The pat ient reports a significant barrier to care due to a lack of transportation, which started after an insurance change when she turned 64. - Recent stressors: Reports the recent d eath of a sister, another sister suffering a stroke, and separation from her . Health Maintenance - This was the patient's initial Medicar e wellness visit. - Immunizations: The patient received a Tdap and an influenza vaccine during the visit. - Cancer Screening: A mammogram was orde red to be done at the [facility], and a home-based colon cancer screening kit will be mailed to her. - Advance Care Planning: Discussed and p rovided the patient with an Advance Care Plan form and a Health Care Proxy form. Review of Systems - Constitutional: Reports feeling icky and weak, with significant fatigue causing her to lie down for two weeks. - HEENT: Reports ears feeling plugged an d experiencing eye boogers. - Skin: Reports very dry skin. - Musculoskeletal: Reports her legs feel like rubber bands. - Psychiatric: Reports anhedonia, having stopped activities like yoga, and not wanting to leave the house due to agoraphobia. Physical Exam General: Well developed, well nourished, in no acute distress. Appears stated age. Head: Normocephalic, atraumatic. Eyes: Pupils are equal, round and reactive to light and accommodation. Conjunctivae are clear. Scleras nonicteric bilat. Vision grossly normal. Ears: TMs clear AU, Cerumen bilat EAC Nose: Patent, without discharge. Neck: No carotid bruit bilat. Supple, no adenopathy Breast: Edu on SBE Lungs: Clear to auscultation bilaterally. No rales, rhonchi or wheeze noted. Good air flow in all cordero. Heart: Regular rate and rhythm. No murmurs, click, rubs or gallops are noted. Abdomen: Bowel sounds present in all quadrants. The abdomen is soft, nontender, with no masses or organomegaly noted. No hernias are noted. : Deferred. 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 Extremities: No clubbing, cyanosis nor edema is noted. Neurologic: Gait and station normal. Cranial Nerves 2-12 intact. Motor strength grossly symmetrical and intact. No sensory loss. Balance normal. Skin: No rashes, ulcers, or lesions noted. Turgor is good. Skin color is good. Hair and nails are without abnormalities. Skin noted to be dry, likely due to thyroid issues. Psych: Normal eye contact, affect and mood appropriate, and normal interactions. Patient is alert and appropriate to context. Results - Labs: - TSH: 74.92 - T4: < 0.42 - LDL: 355 - EGFR: 46 - Creatinine: 1.18 - AST: 59 - ALT: 82 Medical Decision Making The patient is a 64-year-old female who presents for her initial Medicare wellness visit, though the encounter primarily focused on managing multiple chronic conditions exacerbated by medication non-adherence and significant barriers to care. Her recent lab work is alarming, revealing severe hypothyroidism (TSH 74.92), which is the clear limb driver of her profound fatigue, weakness, and xerosis. She has also been non-adherent with her atorvastatin, leading to a markedly elevated LDL of 355. The central issue is a breakdown in care continuity, stemming from a loss of transportation services after an insurance change at age 64. This has prevented her from attending appointments and obtaining necessary lab work, leading to lapses in critical prescriptions. The plan is therefore twofold: restart essential medications and establish a sustainable care plan that accommodates her transportation challenges. She was being seen in the [place] office; she is able to walk there. I will speak to the office mgr and request transfer - pt agrees to this. In the meantime, she can get her labs done at the [facility], as this is in [place]. Immediate management includes sending a 2-month supply of levothyroxine and atorvastatin to her pharmacy. Follow-up labs are crucial and have been ordered for 6 weeks; it was confirmed she can access the lab locally in [place], which mitigates the transportation barrier for diagnostics. Preventative care was addressed by administering Tdap and flu vaccines, ordering a mammogram and a home colon cancer screening kit, and providing education on advance directives. Her dry skin and cerumen impaction were also addressed with symptomatic treatment and recommendations. Plan 1.Hypothyroidism - The patient's symptoms of fatigue, wea kness, and dry skin are consistent with her lab finding of severe hypothyroidism (TSH 74.92) due to non-adherence. - A two-month supply of levothyroxine wi ll be sent to her preferred pharmacy, [facility] in [place]. - The patient is to have repeat thyroid labs drawn in six weeks at the lab in [place] to monitor her response to treatment. 2. Hyperlipidemia - The patient's LDL is severely elevated at 355 due to non-adherence with atorvastatin. - A refill for atorvastatin will be sent to her pharmacy. 3. Medicare Wellness Visit / [facility] tenance - The patient received Tdap and influenz a vaccinations today. - An order for a mammogram at the [facility] will be placed. - A home-based colon cancer screening ki t will be ordered and mailed to the patient's home. - A refill for her vitamin D supplement will be sent to the pharmacy. - The patient was provided with and educ ated on an Advance Care Plan form and a Health Care Proxy form. 4. Barriers To Care - The patient identified lack of transpo rtation as her primary barrier to care. - Confirmed that she is aware and able t o use the more accessible lab location in [place] for drop-in services. - An attempt will be made to arrange for a new primary care provider for the patient in the [place] office to improve access. 5. Xerosis Cutis - The patient's dry skin is likely secon aminata to hypothyroidism. - Recommended using an ointment-based mo isturizer like CeraVe or Vitamin A & D to lock in moisture, but emphasized that treating the underlying thyroid condition will be most effective. 6. Cerumen Impaction - The patient complained of plugged ears and was found to have wax buildup. - Ear lavage was offered and performed d uring the visit. 7. Anxiety And Depression - Patient confirmed she has now received her mental health medications after a lapse. - Patient's recent significant life stre ssors were acknowledged. - Patient was encouraged to resume her p ositive coping mechanisms and activities such as yoga. Patient Instructions - We have sent new prescriptions for you r thyroid medicine (levothyroxine) and cholesterol medicine (atorvastatin) to [facility] pharmacy. - Please get your blood tests done in 6 weeks. - You can go to the lab in [place] for y our blood tests; you do not need a separate appointment. - You received your flu shot and Tdap (w hooping cough) vaccine today. - We have ordered a mammogram for you, w hich you can schedule at the [facility]. - A colon cancer screening kit will be m rylie to your home. - For your dry skin, you can use CeraVe ointment or Vitamin A&D ointment. - Your ears were cleaned out with water during the visit. - We will call you if we are able to fin d you a new primary care doctor in the [place] office. - Please review the Health Care Proxy an d Advance Care Plan forms we gave you and consider filling them out. Consent As part of the wellness visit, the purpose of an Advance Care Plan and Health Care Proxy was discussed with the patient. It was explained that a health care proxy is a person who can make medical decisions on her behalf if she is unable to speak for herself, for example, if she were unconscious after an accident. It was clarified that this authority is limited to medical wishes and does not extend to finances or her estate. The patient acknowledged understanding and was provided with the necessary forms to complete. Patient was informed and verbally consented to the use of an ambient scribe for clinic note documentation during this visit. An additional 30 minutes was spent addressing the problem(s) noted at todays visit. This includes time spent before the visit reviewing the chart, time spent during the visit, and time spent after the visit on documentation reviewing laboratory results, diagnostic imaging, medications, performing a medically necessary evaluation, counseling on diagnoses, care coordination, ordering appropriate tests, ordering appropriate medications, review of tests performed by other providers, reporting test results with the patient, communication with other healthcare providers. [facility] Medical History Vertigo Postsurgical hypothyroidism Surgical History Hx of hernia repair Hx of appendectomy Hx of section Hx of thyroidectomy Family History Mother Diabetes Father Lung cancer Social History (Updated 11/15/23 @ 13:01 by Tereza Escobar CMA) Household Members: Spouse Housing: House Alcohol intake: current Alcohol intake frequency: other Patient Tobacco Use Status: Current everyday Tobacco user Tobacco use type: Cigarette Cigarette Packs Per Day: 0.5 Years Smoked: 50 e-Cigarette/Vaping Use: Never Used Second Hand Smoke Exposure: Yes Substance Use Type: Marijuana service: No Current occupational status: unemployed Current occupational exposures/hazards: No Sexual orientation: Unable to collect Gender identity: Unable to collect Cognitive needs: No Hearing needs: No Vision needs: Yes (wears glasses) Questionnaire Medicare Wellness Checkup [age] What gender do you identify with?: female During the past 4 weeks, how much have you been bothered by emotional problems such as feeling anxious, depressed, irritable, sad or downhearted, and blue?: not at all During the past 4 weeks, has your physical & emotional health limited your social activities with family, friends, neighbors, or groups?: not at all During the past 4 weeks, how much bodily pain have you generally had?: no pain During the past 4 weeks, was someone available to help you if you needed & wanted help?: yes, as much as I wanted During the past 4 weeks, what was the hardest physical activity you could do for at least 2 minutes?: moderate Can you get to places out of walking distance without help? (For eg., can you travel alone on buses, taxis or drive your car?): Yes Can you go shopping for groceries or clothes without someone's help?: Yes Can you prepare your own meals?: Yes Can you do your housework without help?: Yes Because of any health problems, do you need the help of another person with your personal care needs such as eating, bathing, dressing or getting around the house?: No Can you handle your own money without help?: Yes During the past 4 weeks, how would you rate your health in general?: good During the past 4 weeks how have things been going for you?: pretty well Are you having difficulties driving your car?: not applicable, I don't use a car Do you always fasten your seat belt when you are in a car?: yes, usually During past 4 weeks, have you been bothered by the following: never: Falling or dizzy when standing up, Sexual problems?, Trouble eating well?, Teeth or denture problems?, Problems using the telephone? and Tiredness or fatigue? Have you fallen 2 or more times in the past year?: No Are you afraid of falling?: No Are you a smoker?: yes, but I'm not ready to quit During the past 4 weeks, how many drinks of wine, beer, or other alcoholic beverages did you have?: no alcohol at all Do you exercise for about 20 minutes 3 or more times a week?: no, I usually do not exercise this much Have you been given information to help with the following?: no: Hazards in your house that might hurt you? and no: Keeping track of your medications? How often do you have trouble taking medicines the way you have been told to take them?: sometimes I take medicine as prescribed How confident are you that you can control & manage most of your health problems?: very confident What is your race?: Black or Activity of Daily Living Bathing - sponge bath, tub bath or shower: receives no assistance (gets in/out by self, if usual bathing means Dressing - getting clothes from closets & drawers, including inner/outer garments & fasteners.: gets clothes & gets completely dressed without help Toileting - going to the 'toilet room' for urine/bowel elimination & cleaning self/arranging clothes: goes to toilet room, cleans self, arranges clothes without help Transfer: moves in & out of bed and chair without help (may use support object) Continence: has occasional 'accidents' Feeding: feeds self without help Total Score: 0 Information obtained from: patient Using telephone: independent Traveling: independent Shopping: independent Preparing meals: independent Housework: independent Taking medicine: independent Managing money: independent PHQ-9 Over the last 2 weeks, how often have you been bothered by any of the following problems? 1. Little interest or pleasure in doing things: not at all 2. Feeling down, depressed, or hopeless: not at all 3. Trouble falling or staying asleep, or sleeping too much: not at all 4. Feeling tired or having little energy: not at all 5. Poor appetite or overeating: not at all 6. Feeling bad about yourself - or that you are a failure or have let yourself or your family down: not at all 7. Trouble concentrating on things, such as reading the newspaper or watching television: not at all 8. Moving or speaking so slowly that other people could have noticed. Or the opposite - being so fidgety or restless that you have been moving around a lot more than usual: not at all 9. Thoughts that you would be better off or of hurting yourself in some way: not at all Total score: 0 Depression Screening Interpretation: Negative Depression Screening Done: Yes 79917 - PHQ-9 Billing: Yes Source: Developed by Drs. Agusto Delgado, Klarissa Banegas, Satinder Douglas and colleagues, with an educational kaitlin from [email or web address]. Physical Exam Vital Signs: Last Vital Signs Temp 97.2 F 07/23/25 12:45 Pulse 93 07/23/25 12:45 Resp 13 07/23/25 12:45 BP 138/76 07/23/25 12:45 Pulse Ox 98 07/23/25 12:45 Oxygen Delivery Method Room Air 07/23/25 12:45 BMI result Body Mass Index 28.4 Office Procedures Cerumen Removal Details: Irrigation resulted in no cerumen removal. From which ear canal was the cerumen removed: bilateral Removal: irrigation (irrigated with 50-50 solution of warm tap water and hydrogen peroxide. Irrigation revealed no cerumen either ear) Notes: patient tolerated procedure well (tolerated bilateral irigation) [id number] Irrigation/Lavage (50-50 solution warm tap water hydrogen peroxide) Flu Questionnaire Does the patient have a severe egg allergy?: No Does the patient have severe life threatening allergies?: No Does the patient have a fever or illness today?: No Has the patient ever had Guillain-[place] Syndrome?: No Has the patient ever had any past reaction to a flu shot?: No Vision Screening Right Eye: 20/30 Left Eye: 20/30 Bilateral: 20/30 Color: Pass 51855 - Vision Screening Immunizations Fluarix [id number] (PF) 45 mcg (15 mcg x 3)/0.5 mL IM syringe Performing Provider: ANAID Wade Performing Location: [facility] Administered by: Steven Rogers RN on 07/23/25 14:04 Dose Route Admin Location Dispensed Lot Number Expiration Date [facility] [place] 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 0.5 mL IM Right Deltoid 0.5 mL [id number] 03/22/26 11797-036-29 [employer]SM[employer] VIS Given Date VIS Provided VIS Publication Date 07/23/25 Single Vaccine 24 Eligibility Eligibility Date Funding Source Not VFC Eligible 07/23/25 Private Boostrix Tdap 2.5 Lf unit-8 mcg-5 Lf/0.5 mL intramuscular syringe Performing Provider: ANAID Wade Performing Location: [facility] Administered by: Steven Rogers RN on 07/23/25 14:05 Dose Route Admin Location Dispensed Lot Number Expiration Date [facility] [place] 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 0.5 mL IM Right Deltoid 0.5 mL [id number] 08/20/27 42617-883-01 [employer] Total Dispensed Waste 0.5 mL 0 % VIS Given Date VIS Provided VIS Publication Date 07/23/25 Single Vaccine 21 Eligibility Eligibility Date Funding Source Not VFC Eligible 07/23/25 Private Assessment & Plan Assessment & Plan (1) Encounter for initial annual wellness visit (AWV) in Medicare patient: Onset Date: ~07/23/25 Code(s): Z00.00 - Encounter for general adult medical examination without abnormal findings (2) MDD (major depressive disorder), recurrent episode: Comment: Current and active managed by outside prescriber and counselor. Maintained on buspirone, fluoxetine, hydroxyzine, lorazepam Code(s): F33.9 - Major depressive disorder, recurrent, unspecified Qualifiers: Major depression episode severity: severe Psychotic features: without psychotic features Qualified Code(s): F33.2 - Major depressive disorder, recurrent severe without psychotic features (3) DAVE (generalized anxiety disorder): Comment: Current and active managed by outside prescriber and counselor. Maintained on buspirone, fluoxetine, hydroxyzine, lorazepam Code(s): F41.1 - Generalized anxiety disorder (4) Hyperlipidemia: Comment: Current smoker. on Statin Code(s): E78.5 - Hyperlipidemia, unspecified Qualifiers: Hyperlipidemia type: mixed hyperlipidemia Qualified Code(s): E78.2 - Mixed hyperlipidemia (5) Postsurgical hypothyroidism: Comment: d/t Graves Disease (2016), currently on levothyroxine. Was managed by endocrinology in the past. Code(s): E89.0 - Postprocedural hypothyroidism (6) Osteopenia: Comment: noted on DEXA 12/2023 Vit D and Ca+ levels WNL Maintain wt bearing exercises Code(s): M85.80 - Other specified disorders of bone density and structure, unspecified site Qualifiers: Osteopenia location: unspecified Qualified Code(s): M85.80 - Other specified disorders of bone density and structure, unspecified site (7) Screen for colon cancer: Comment: Cologuard ordered Reports mom had a positive history of polyps Code(s): Z12.11 - Encounter for screening for malignant neoplasm of colon (8) CKD (chronic kidney disease) stage 3, GFR 30-59 ml/min: Comment: Based on recent labs. Avoid nephrotoxic agents. Code(s): N18.30 - Chronic kidney disease, stage 3 unspecified Qualifiers: Chronic kidney disease stage 3 subtype: stage 3a (GFR 45-59) Qualified Code(s): N18.31 - Chronic kidney disease, stage 3a (9) Tobacco user: Comment: Current everyday smoker. Has been smoking 1 pack per day for 25 years. Interested in a referral to the lung cancer screening program. Referral placed today. Cessation encouraged Smoking Cessation How to Quit There are a lot of ways to quit smoking and many resources to help you. Family members, friends, and co-workers may be supportive or encouraging, but to be successful the desire and commitment to quit must be your own. Most people who have been able to successfully quit smoking made at least one unsuccessful attempt in the past. Try not to view past attempts to quit as failures, but rather as learning experiences. Stopping smoking or using smokeless tobacco is difficult, but anyone can do it. Know the symptoms to expect when you stop. Common symptoms include: ? An intense craving for nicotine ? Anxiety, tension, restlessness, frustration, or impatience ? Difficulty concentrating ? Drowsiness or trouble sleeping, as well as bad dreams and nightmares ? Drowsiness and trouble sleeping ? Headaches ? Increased appetite and weight gain ? Irritability or depression How severe your symptoms are depends on how long you smoked and how many cigarettes you smoked each day. Feel ready to quit? ? First and foremost, set a quit date and quit completely on that day. Before your quit date, you may begin reducing your cigarette use. But remember, there is no safe level of cigarette smoking. ? List the reasons why you want to quit. Include both short- and long-term benefits. ? Identify the times you are most likely to smoke. For example, do you tend to smoke when feeling stressed or down? When out at night with friends? While drinking coffee or alcohol? When bored? While driving? Right after a meal or sex? During a work break? While watching TV or playing cards? When you are with other smokers? ? Let all of your friends, family, and co-workers know of your plan to stop smoking and your quit date. Just being aware that they know what you're going through can be helpful, especially when you are grumpy. ? Get rid of all your cigarettes just before the quit date, and clean out anything that smells like smoke, such as clothes and furniture. Make a plan about what you will do instead of smoking at those times when you are most likely to smoke. ? Be as specific as possible. For example, drink tea instead of coffee -- tea may not trigger the desire for a cigarette. Or, take a walk when you feel stressed. ? Remove ashtrays and cigarettes from the car. Place pretzels or hard candies th ere instead. Pretend-smoke with a straw. ? Find activities that focus your hands and mind but are not taxing or fattening. Computer games, solitaire, knitting, sewing, and crossword puzzles may help. ? If you normally smoke after eating, find other ways to end a meal. Play a tape or CD, eat a piece of fruit, get up and make a phone call, or take a walk (a good distraction that also avalos calories). Make other changes in your lifestyle. ? Change your daily schedule and habits. Eat at different times or eat several small meals instead of three large ones. Sit in a different chair or even a different room. ? Satisfy your oral habits by eating celery or other low-calorie snack, chewing sugarless gum, or sucking on a cinnamon stick. ? Go to public places and restaurants where smoking is prohibited or restricted. ? Eat regular meals and don't eat too much candy or sweet things. ? Get more exercise. Take walks or ride a bike. Exercise helps relieve the urge to smoke. Set short-term quitting goals and reward yourself when you meet them. ? Every day, put the money you normally spend on cigarettes in a jar. Then buy something pleasurable after a period of time. ? Try not to think about all the days ahead you will need to avoid smoking. Take it one day at a time. ? Even one puff or one cigarette will make your desire for more cigarettes even stronger. However, it is normal to make mistakes. So even if you have one cigarette, you don't need to take the next one. Other tips to help you quit smoking and stick to it: ? Enroll in a smoking cessation program (hospitals, health departments, community centers, and work sites often offer programs). Learn about self-hypnosis or other techniques. ? Ask your health care provider about prescription medications that are safe and appropriate for you. ? Find out about nicotine patches, gum, and sprays. The [employer]'s web site -- www.cancer.org -- is an excellent resource for smokers who are trying to quit, and the [employer] [place] [employer] can help some smokers kick the habit. Above all, don't get discouraged if you aren't able to quit smoking the first time. Nicotine addiction is a hard habit to break. Try something different next time. Develop new strategies, and try again. Many people take several attempts to finally kick the habit. Code(s): Z72.0 - Tobacco use (10) Urinary incontinence: Code(s): R32 - Unspecified urinary incontinence Qualifiers: Urinary Incontinence type: unspecified incontinence Qualified Code(s): R32 - Unspecified urinary incontinence (11) Screening for cervical cancer: Comment: care partner referral placed for routine care. Reports she has not had a Pap smear in several years Code(s): Z12.4 - Encounter for screening for malignant neoplasm of cervix (12) Screening mammogram for breast cancer: Comment: Screening mammogram ordered today Code(s): Z12.31 - Encounter for screening mammogram for malignant neoplasm of breast (13) ACP (advance care planning): Code(s): Z71.89 - Other specified counseling (14) Cerumen impaction: Code(s): H61.20 - Impacted cerumen, unspecified ear Qualifiers: Laterality: bilateral Qualified Code(s): H61.23 - Impacted cerumen, bilateral Plan . Orders: Orders TSH reflex Free T4 6 Weeks E89.0 - Postprocedural hypothyroidism, Z00.00 - Encounter for general adult medical examination without abnormal findings MM tomosynthesis screening BI Today Z12.31 - Encounter for screening mammogram for malignant neoplasm of breast Influenza [id number] Immunization Today Z23 - Encounter for immunization TDaP Immunization Today Z23 - Encounter for immunization Hepatitis A,B,C Profile 6 Weeks E89.0 - Postprocedural hypothyroidism, Z00.00 - Encounter for general adult medical examination without abnormal findings HIV Ab/Ag 6 Weeks E89.0 - Postprocedural hypothyroidism, Z00.00 - Encounter for general adult medical examination without abnormal findings Referrals Lung Cancer Screening Referral Z72.0 - Tobacco use Cologuard Test Z12.11 - Encounter for screening for malignant neoplasm of colon Medications: Refilled levothyroxine she needs appt 112 mcg PO DAILY 30 tabs 1RF atorvastatin she needs to schedule appt 20 mg PO BEDTIME 90 tabs 2RF cholecalciferol (vitamin D3) (Vitamin D3) 25 mcg PO DAILY 90 caps 1RF Patient Instructions: Health screenings for women You should visit your health care provider from time to time, even if you are healthy. The purpose of these visits is to: Screen for medical issues Assess your risk for future medical problems Encourage a healthy lifestyle Update vaccinations and other preventive care services Help you get to know your provider in case of an illness Information Even if you feel fine, you should still see your provider for regular checkups. These visits can help you avoid problems in the future. For example, the only way to find out if you have high blood pressure is to have it checked regularly. High blood sugar and high cholesterol levels also may not have any symptoms in the early stages. A simple blood test can check for these conditions. There are specific times when you should see your provider or receive specific health screenings. The [place] Preventive Services Task Force publishes a list of recommended screenings. Below are screening guidelines for women ages 18 to 39. BLOOD PRESSURE SCREENING Your blood pressure should be checked at least once every 3 to 5 years if: Your blood pressure is in the normal range (top number less than 120 mm Hg and bottom number less than 80 mm Hg) You don't have risk factors for high blood pressure Ask your provider if you need your blood pressure checked more often if: The top number is 120 to 129 mm Hg or the bottom number is 70 to 79 mm Hg You have diabetes, heart disease, kidney problems, are overweight, or have certain other health conditions You have a first-degree relative with high blood pressure You are Black You had high blood pressure during a If the top number is 130 mm Hg or greater or the bottom number is 80 mm Hg or greater, this is considered stage 1 hypertension. Schedule an appointment with your provider to learn how you can reduce your blood pressure. Watch for blood pressure screenings in your area. Ask your provider if you can stop in to have your blood pressure checked. BREAST CANCER SCREENING Experts do not agree about the benefits of breast self-exams in finding breast cancer or saving lives. Talk to your provider about what is best for you. A screening mammogram is not recommended for most women under age 40. Your provider may discuss and recommend mammograms, MRI scans, or ultrasounds if you have an increased risk for breast cancer, such as: A mother or sister who had breast cancer at a young age (most often starting screening earlier than the age the close relative was diagnosed) You carry a high-risk genetic marker CERVICAL CANCER SCREENING Cervical cancer screening should start at age 21 years unless your provider advises otherwise. After the first test: Women ages 21 through 29 should have a Pap test every 3 years. Exoprts do not agree on whether HPV testing is recommended for this age group. Women ages 30 through 65 should be screened with either a Pap test every 3 years or the HPV test every 5 years or both tests every 5 years (called cotesting ). Women who have been treated for precancer (cervical dysplasia) should continue to have Pap tests for 20 years after treatment or until age 65, whichever is longer. If you have had your uterus and cervix removed (total hysterectomy), and you have not been diagnosed with cervical cancer or precancer (high grade cervical neoplasia), you do not need cervical cancer screening. CHOLESTEROL SCREENING Cholesterol screening should begin at: Age 45 for women with no known risk factors for coronary heart disease Age 20 for women with known risk factors for coronary heart disease Repeat cholesterol screening should take place: Every 5 years for women with normal cholesterol levels More often if changes occur in lifestyle (including weight gain and diet) More often if you have diabetes, heart disease, kidney problems, or certain other conditions DIABETES SCREENING You should be screened for diabetes starting at age 35 and then repeated every 3 years if you have no risk factors for diabetes. Screening may need to start earlier and be repeated more often if you have other risk factors for diabetes, such as: You have a first degree relative with diabetes. You are overweight or have obesity. You have high blood pressure, prediabetes, or a history of heart disease. Screening for diabetes should be done if you are planning to become and you are overweight and have other risk factors such as high blood pressure. DENTAL EXAM Go to the dentist once or twice every year for an exam and cleaning. Your dentist will evaluate if you need more frequent visits. EYE EXAM Have an eye exam every 5 to 10 years before age 40. If you have vision problems, have an eye exam every 2 years or more often if recommended by your provider. You should have an eye exam that includes an examination of your retina (back of your eye) at least every year if you have diabetes. IMMUNIZATIONS Commonly needed vaccines include: Flu shot: get one every year. COVID-19 vaccine: ask your provider what is best for you. Tetanus-diphtheria and acellular pertussis (Tdap) vaccine: have one at or after age 19 as one of your tetanus-diphtheria vaccines if you did not receive it as an adolescent. Tetanus-diphtheria: have a booster (or Tdap) every 10 years. Varicella vaccine: receive 2 doses if you never had chickenpox or the varicella vaccine. Hepatitis B vaccine: receive 2, 3, or 4 doses, depending on your exact circumstances. Measles, mumps, and rubella (MMR) vaccine: receive 1 to 2 doses if you are not already immune to MMR. Your provider can tell you if you are immune. Ask your provider about the human papillomavirus (HPV) vaccine if: You have not received the HPV vaccine in the past You have not completed the full vaccine series (you should catch up on this shot) Ask your provider if you should receive other immunizations if you have certain health problems that increase your risk for some diseases such as pneumonia. INFECTIOUS DISEASE SCREENING Women who are sexually active should be screened for chlamydia and gonorrhea up until age 25. Women 25 years and older should be screened for chlamydia and gonorrhea if at high risk. Screening for hepatitis C: All adults ages 18 to 79 should get a one-time test for hepatitis C. people should be screened at every . Screening for human immunodeficiency virus (HIV): All people ages 15 to 65 should get a one-time test for HIV. Depending on your lifestyle and medical history, you may also need to be screened for infections such as syphilis and HIV, as well as other infections. PHYSICAL EXAM All adults should visit their provider from time to time, even if they are healthy. The purpose of these visits is to: Screen for disease Assess your risk of future medical problems Encourage a healthy lifestyle Update your vaccinations and other preventive care services Maintain a relationship with a provider in case of an illness Your height, weight, and BMI should be checked at every exam. During your exam, your provider may ask you about: Depression and anxiety Diet and exercise Alcohol and tobacco use Safety issues, such as using seat belts, smoke detectors, and intimate partner violence Your medicines and risk for interactions SKIN SELF-EXAM Your provider may check your skin for signs of skin cancer, especially if you're at high risk, such as if you: Have had skin cancer before Have close relatives with skin cancer Have a weakened immune system OTHER SCREENING Talk with your provider about colon cancer screening if you have a strong family history of colon cancer or polyps, or if you have had inflammatory bowel disease or polyps yourself. Routine bone density screening of women under 40 is not recommended. Quality Reporting (2019) Adult ([facility] 138/2/) Smoking risk assessment performed?: Yes Patient Tobacco Use Status: Current everyday Tobacco user Tobacco cessation counseling provided: Yes Items discussed: Nicotine replacement, QuitWorks and Other Pharmacotherapy not ordered: Yes (pt declined) Depression screening performed: Yes Screen Results: Yes Negative screen Systolic BP not done?: No Diastolic BP not done?: No BMI screening not done: No Sexual Activity Screening ([facility] 153) Sexually active?: Yes Immunizations ([facility] 147, 117) Annual Influenza Vaccine: Yes Measles Antibody Test: No Mumps Antibody Test: No Rubella Antibody Test: No Varicella Antibody Test: No Anti Hepatitis A IgG Antigen test: No Anti Hepatitis B Virus Surface Ab test: No Fall Risk Screening ([facility] 139) Last assessed Fall Risk: 07/23/25 Fall risk assessment: No Falls in past year Dementia Assessment ([facility] 149) Cognitive assessment recorded: Yes Assessment of cognition with standardized tool: Yes Depression/Bipolar (159/160/161/177) PHQ-9: Total score: 0 Ophthalmol:Cataracts Visual Acuity (133) Visual acuity exam performed: Yes (see results) Coding Level of Care Code Medicare IPPE (G0402) Est Pt Level 4 (49734) Diagnoses Encounter for initial annual wellness visit (AWV) in Medicare patient Z00.00 Severe episode of recurrent major depressive disorder, without psychotic features F33.2 Major depression episode severity: severe Psychotic features: without psychotic features DAVE (generalized anxiety disorder) F41.1 Mixed hyperlipidemia E78.2 Hyperlipidemia type: mixed hyperlipidemia 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 Osteopenia, unspecified location M85.80 Osteopenia location: unspecified Screen for colon cancer Z12.11 Stage 3a chronic kidney disease N18.31 Chronic kidney disease stage 3 subtype: stage 3a (GFR 45-59) Tobacco user Z72.0 Urinary incontinence, unspecified type R32 Urinary Incontinence type: unspecified incontinence Screening for cervical cancer Z12.4 Screening mammogram for breast cancer Z12.31 ACP (advance care planning) Z71.89 Bilateral impacted cerumen H61.23 Laterality: bilateral CPT Codes Advance Care Planning - Time spent: 16-45 minutes ([id number]) Office Procedure - CPT: 50908-Ffj Irrigation/Lavage ([id number]) Vision Screening - Vision Screenin - Vision Screening ([id number]) Additional Codes PHQ-9 - 94677 - PHQ-9 Billing: Yes ([id number]) Advance Care Planning Advance Care Planning discussion: Exists, not on file Date of discussion: 07/23/25 Who was present: self Forms completed: Health Care Proxy, MOLST and Living will Time spent: 16-45 minutes Actual minutes spent: 16
[2025-07-23 12:45] VITALS: BP 138/76; PULSE 93; RESP 13; TEMP 36.2; O2SAT 98; BMI 28.4
== END 2025-07-23 14:03 | disposition home or self-care (01) ==
LOC: HO.HMCFM 12:37
PROVIDERS: PCP Nurse Practitioner Family; Visit Provider Nurse Practitioner Family
DX: Z00.00 Encounter for general adult medical examination without abnormal findings (principal); H61.23 Impacted cerumen, bilateral; Z23 Encounter for immunization

== ENCOUNTER → 2025-07-23 12:36 | Outpatient (BNVA) | payer MEDICARE, SELFPAY | PROVIDERS: PCP Nurse Practitioner Family; Visit Provider Nurse Practitioner Family | DX: Z00.00 Encounter for general adult medical examination without abnormal findings (principal); Z23 Encounter for immunization; H61.23 Impacted cerumen, bilateral; F33.2 Major depressive disorder, recurrent severe without psychotic features; F41.1 Generalized anxiety disorder; E78.2 Mixed hyperlipidemia; E89.0 Postprocedural hypothyroidism; M85.80 Other specified disorders of bone density and structure, unspecified site; N18.31 Chronic kidney disease, stage 3a; R32 Unspecified urinary incontinence; Z72.0 Tobacco use | CPT/HCPCS: 69209; 90471; 90656; 90715; G0402 ==